=== PATIENT | male | born 1930 | race Caucasian/White ===

== ENCOUNTER 2016-10-16 16:30 | Emergency (ER) | payer MEDICARE, OTHER ==
[~2016-10-16] VITALS: Ht 180.3 cm; Wt 81.4 kg
[~2016-10-16 16:30] MED LIST: ALBU2.5V4 INHALATION; ALBU8.5H2 INHALATION; ARFO15VI2 IH; ASPI-628 PO; BUDE0.5A HHN; CALC-190 PO; CHOL100045 PO; CYAN500 PO; FURO-129 PO; GABA600T PO; LEVO137T2 PO; LISI-571 PO; METF500T4 PO; PANT20TA2 PO; POLY17PO6 PO; PRAV20TA2 PO; PRD1T PO; SENN8.6C6 PO; VICODIN 5/500 PO; Vicodin 5/500 PO
[2016-10-16 16:44] VITALS: BP 142/76; PULSE 88; RESP 22; O2SAT 98
--- NOTE | 2016-10-16 16:57 | ED.REPORT ---
HPI-Trauma Minor / Fall Date of Service Oct 16, 2016 ED Provider: Dr. Eagle Pt is an 86 y/o male w/ a hx of TAA, CAD, HTN, COPD, hyperlipidemia, presenting to the ED c/o LUQ abdominal pain secondary to ground level fall which occurred prior to arrival. The patient was about to walk up some stairs while carrying a microwave and didn't clear the step with his foot causing the edge of the microwave to holland into his upper abdomen and ribs. His chief complaint at this time is LUQ abdominal pain. He believes he lost consciousness for about 2 seconds. He denies significant head injury. Pt denies vomiting, SOB. Nursing Notes Stated Complaint: CHEST PAIN Chief Complaint: Multiple Trauma/Fall Nursing Notes Reviewed: Yes Allergies: Coded Allergies: diatrizoate sodium (Verified Allergy, Severe, 01/20/16) iodine (Verified Allergy, Severe, ANAPHYLAXIS, 01/20/16) peach (Verified Allergy, Severe, throat closes, 01/20/16) Iothalamic Acid (Verified Allergy, Unknown, UNKNOWN, 08/23/14) calcitonin (Verified Allergy, Unknown, UNKNOWN, 08/23/14) strawberry (Verified Allergy, Unknown, UNKNOWN, 01/20/16) Bisphosphonates (Verified Adverse Reaction, Severe, GI upset, 08/23/14) Uncoded Allergies: EXPECTORANTS (Allergy, Unknown, UNKNOWN, 08/23/14) OATMEAL (Allergy, Unknown, UNKNOWN, 08/23/14) Scheduled Arformoterol Tartrate (Brovana) 15 Mcg/2 Ml Vial.neb 15 MCG IH BID Aspirin (Aspir 81) 81 Mg Tablet. 81 MG PO HS Budesonide (Pulmicort) 0.5 Mg/2 Ml Ampul.neb. 0.5 MG HHN BID Calcium Carb&Cit/Mag12/Vit D3 (Calcium 500 mg Tablet) 1 Each Tablet 1 EACH PO BID Cholecalciferol (Vitamin D3) (Vitamin D) 1,000 Unit Capsule 1,000 UNIT PO DAILY Cyanocobalamin (Vitamin B12) 500 Mcg Tablet 1,000 MCG PO DAILY Furosemide (Lasix) 20 Mg Tablet 20 MG PO DAILY Gabapentin (Neurontin) 600 Mg Tablet 600 MG PO TID Levothyroxine (Levothyroxine) 137 Mcg Tablet 137 MCG PO DAILY Lisinopril (Lisinopril) 5 Mg Tablet 5 MG PO DAILY Metformin (Metformin) 500 Mg Tablet 500 MG PO MORNING Metformin (Metformin) 500 Mg Tablet 250 MG PO Evening Pantoprazole DR (Pantoprazole DR) 20 Mg Tablet.dr 20 MG PO BIDAC Polyethylene Glycol 3350 (Miralax) 17 Gm Powd.pack 17 GM PO DAILY Pravastatin (Pravastatin) 20 Mg Tablet 20 MG PO HS PredniSONE (PredniSONE) 1 Mg Tab 6-7 MG PO DAILY ALTERNATE 6MG & 7MG DAILY Scheduled PRN ([Vicodin 5/500]) 1 TAB PO 0600, 1400 PRN PRN For Pain ([Vicodin 5/500]) 0.5 TAB PO HS PRN PRN For Pain Albuterol HFA (Proair HFA) 8.5 Gm Hfa.aer.ad 2 PUFFS INHALATION Q4-6H PRN PRN For Shortness of Breath Albuterol Neb Soln (Albuterol Neb Soln) 2.5 Mg/3 Ml Vial.neb 2.5 MG INHALATION Q4-6H PRN PRN For Shortness of Breath Up to 4 times daily Sennosides (Senna) 8.6 Mg Capsule 2 CAP PO DAILY PRN PRN PRN oxyCODONE-Acetaminophen 10-325 mg (oxyCODONE-Acetaminophen 10-325 mg) 1 Each Tablet 1 TABLET PO Q4H PRN PRN For Pain oxyCODONE-Acetaminophen 10-325 mg (oxyCODONE-Acetaminophen 10-325 mg) 1 Each Tablet 1 TABLET PO Q4H PRN PRN For Pain General Time Seen by MD: 16:56 Chief Complaint Fall Hx Obtained From: Patient Arrived By: Walk-in Onset Occurred: Just prior to arrival Symptom Duration: Since onset Caused by: Blunt trauma Location: Abdomen Chest Quality: Painful Severity: Current: Moderate Severity: Maximum: Moderate Similar Sx Previous: No Past Medical History Past Medical History Notes: Nuclear med perfusion study in 2014: No obvious reversible ichemia, but some visible perfusion abnormalities. Past Medical History thoracic aortic aneurysm - 4.5cm SVT Venous insufficiency history of DVT Valvular heart disease rectal bleeding with internal hemorrhoids Hiatal hernia arthritis Reports: Asthma, COPD, Coronary artery disease, GERD, Hyperlipidemia, Hypertension Reports: Depression Past Surgical History Cataracts (S/P EXTRACTIONS) cardiac cath 2x Reports: Appendectomy, Cholecystectomy Reports: Back/neck surgery Family History noncontributory Smoking History Never Smoker Social History Other Social History: Good social support, , Local resident Ambulatory Status Independent Review of Systems Constitutional: Denies: Chills, Fever Respiratory: Denies: Non-productive cough, Shortness of breath Musculoskeletal: Denies: Back pain, Neck pain Neurologic: Denies: Focal weakness, Headache, Numbness Complete sys rev & neg: except as marked. Cardiovascular: Reports: Chest pain, Denies: Dyspnea on exertion GI: Reports: Abdominal pain, Denies: Nausea, Vomiting Physical Exam Initial Vital Signs Vital Signs (First) Date Time Temp Pulse Resp B/P Pulse Ox O2 Delivery O2 Flow Rate FiO2 10/16/16 16:44 36.6 88 22 142/76 98 Room Air Initial VS: Reviewed, Vital signs normal Head / Eyes: Atraumatic, Normocephalic, PERRL ENT: Mucous membranes moist, Conjunctiva normal, No scleral icterus Cardiovascular: Regular rate & rhythm, Heart sounds normal, Intact distal pulses Extremities: Vascular intact, Neuro intact, No swelling, No tenderness Skin: Warm, Dry, No cyanosis Neurologic: Alert, Oriented, Nonfocal Psychiatric: Mood/affect normal, Behavior normal, Normal thought content General/Constitutional: Awake, Alert, Cooperative, Not toxic appearing Distress / Hydration: Positive: Distress mild Appearance / Presentation: Positive: In pain, Uncomfortable Neck: Atraumatic, Supple, No meningismus, Full range of motion, No swelling, Non-tender, No midline vertebral tend Respiratory / Chest: Atraumatic, Breath sounds NL, Breath sounds = bilat, No respiratory distress, No rales, No rhonchi, No wheezing, No retractions, No stridor, No chest wall deformity, No crepitus Point tenderness about about anterior ribs 5, 6, and 7 on the left. No bony step-offs. Abdomen: Soft, No guarding, No rebound, No distention, No palpable mass Tenderness/Guarding/Rebound: Positive: Tender LUQ... (Moderate) Back: Full range of motion, Painless range of motion Interpretation & Diagnostics Lab Results Interpretation Result Diagram: 10/16/168 10/16/168 Test 10/16/16 17:58 White Blood Count 10.4th/mm3 (3.8-10.1) Red Blood Count 3.44mil/mm3 (4.40-5.80) Hemoglobin 11.6g/dL (13.8-17.2) Hematocrit 32.3% (41.0-50.0) Mean Corpuscular Volume 93.9fL (81-100) Mean Corpuscular Hemoglobin 33.7pg (27.0-35.0) Mean Corpuscular Hemoglobin Concent 35.9% (32.0-37.0) Red Cell Distribution Width 15.8% (12.3-15.4) Platelet Count 249bil/L (150-400) Neutrophils (%) (Auto) 56.9% (40-74) Lymphocytes (%) (Auto) 35.5% (14-46) Monocytes (%) (Auto) 6.0% (4-12) Eosinophils (%) (Auto) 1.1% (0-5) Basophils (%) (Auto) 0.2% (0-3) Prothrombin Time 10.5sec (8.1-12.5) Prothromb Time International Ratio 0.98ratio Sodium Level 131mEq/L (134-144) Potassium Level 4.7mEq/L (3.5-5.2) Chloride Level 93mEq/L (97-108) Carbon Dioxide Level 22mmol/L (18-29) Blood Urea Nitrogen 14mg/dL (8-27) Creatinine 0.87mg/dL (0.76-1.27) Estimat Glomerular Filtration Rate 88mL/min (>59) Glucose Level 126mg/dL (60-99) Lactic Acid Level 1.8mmol/L (0.4-2.0) Calcium Level 9.5mg/dL (8.5-10.1) Magnesium Level 2.3mg/dL (1.6-2.6) Total Bilirubin 1.0mg/dL (0.0-1.2) Aspartate Amino Transf (AST/SGOT) 17U/L (0-50) Alanine Aminotransferase (ALT/SGPT) 13U/L (0-44) Alkaline Phosphatase 47U/L (25-160) Total Protein 6.8g/dL (6.4-8.4) Albumin 4.1g/dL (3.4-5.0) Lipase 25U/L (13-60) ECG Interpretation ECG Interpretation: Sinus rhythm rate 81 Borderline prolonged TX interval RBBB Time: 17:39 Interpreted by: ED physician Normal ECG Interpretation: No acute ischemic changes, No change from prior ECGs (01/20/16) X-Ray Chest Interpretation Chest Xray Interpretation: IMPRESSION: No acute disease is seen in the two-view chest. Dictated by: Bernard Riggs M.D. on 10/16/2016 at 17:34 Approved by: Bernard Riggs M.D. on 10/16/2016 at 17:36 View: Portable, AP & lat Interpretation / Wet Read by: Interpret - Radiologist CT Head Interpretation IMPRESSION: No acute intracranial abnormality/traumatic abnormalities seen. Atrophic changes present. Dictated by: Bernard Riggs M.D. on 10/16/2016 at 17:24 Approved by: Bernard Riggs M.D. on 10/16/2016 at 17:27 Study: Head CT no contrast Interpretation / Wet Read by: Interpret - Radiologist CT Abd / Pelvis Interpretation IMPRESSION: 1. No traumatic abnormality is seen in this patient status post fall. 2. Unchanged nonobstructing kidney stones one on each side less than 5 mm. 3. Degenerative changes in the visualized skeleton but no fracture. Previous lower lumbar laminectomies. Dictated by: Bernard Riggs M.D. on 10/16/2016 at 17:27 Approved by: Bernard Riggs M.D. on 10/16/2016 at 17:32 Study type: Abdominal CT no contrast Interpretation / Wet Read by: Interpret - Radiologist Re-Eval/Medical Decision Med Decision/Clinical Course 86-year-old male with multiple medical problems presents after a fall after he missed a step at home and landed on his microwave which he was carrying at the time. He is in the process of moving. He admits to a syncopal episode that occurred with the fall but did not precipitate the fall. He complains of hitting his head with the fall. Head CT was unremarkable. Abdominal/pelvic CT showed no intra-abdominal bleeding or injury. On his exam he is focally tender and ribs 5,6 and 7 anteriorly near the nipple line. I spoke with Dr. Riggs in radiology who notes that the patient has possible rib fractures noted on series 7, views 3 and 11. I discussed with the patient that there is significant concern for post injury complications such as pneumonia, pulmonary embolus, and intractable pain in patients his age after rib fractures and recommended admission for pain control. Patient notes he does not want to be admitted and will try and control home. He has received 2 doses of Dilaudid 0.5 mg IV without relief of his pain. He was then given Toradol 15 mg and Dilaudid 0.5 mg again and found some improvement of his pain. I have discharged him home with a prepack of Percocet as well as a prescription for 14 tablets of Percocet 10/325. He takes chronic Vicodin 10 mg every 6 hours for his rheumatoid arthritis, so he may need something stronger to help with this acute on chronic pain and I have recommended he switch to Percocet. I also recommended he take ibuprofen 400 mg every 6-8 hours as it seemed the anti-inflammatories were more helpful than the narcotics for his acute rib pain. I recommended he only be on this as long as needed due to the increased risk for patients his age Lab work returned normal. His EKG was unremarkable. Chest x-ray was normal. Patient understands that he should return to the ER if he has intractable pain, develops shortness of breath, or fever or chills. I discussed his care with his PCP, Dr. Mejia who plans to follow-up with him next week Source of Hx: Old records Re-Evaluation/Progress : Time of Eval: 20:06 Re-Evaluation/Progress Note: Pain still not improved. We will try Toradol 10 mg and Dilaudid 0.5 mg again Consultation #1: Referral / Consult Name: Bernard Riggs MD Call Returned at: 18:25 Molded Candles Wicker: Agrees with eval, Agrees with plan Note: Reports the patient does in fact have rib fractures that were not reported on the initial CT. Consultation #2: Referral / Consult Name: Debra Mejia MD Consulted With: Primary care physician Molded Candles Wicker: Will see in office, Agrees with eval, Agrees with plan Counseled Regarding: Diagnosis, Lab results, Need for follow-up, When/why to return to ED Discharge & Departure Impression: Primary Impression: Rib fractures Encounter type: initial encounter Rib fracture type: multiple ribs Fracture type: closed Laterality: left Qualified Code: S22.42XA - Multiple fractures of ribs, left side, initial encounter for closed fracture Additional Impressions: Fall from ground level Blunt trauma to abdomen Encounter type: initial encounter Qualified Code: S39.81XA - Other specified injuries of abdomen, initial encounter Syncope Syncope type: unspecified Qualified Code: R55 - Syncope and collapse Disposition: Home Discharge Condition All VS Reviewed: Yes Condition: Stable Patient Instructions: Rib Fracture (ED) Additional Instructions: You have have fractured several ribs on the left side from your fall today. I think that you will will need Percocet which is known to be a little stronger than Vicodin to help with your pain. These follow-up with your PCP next week for a reevaluation. Return to the ER if you develop worsening or intractable pain, shortness of breath, or cough/fevers. I am sorry this happened and I wish you the best with the move. Referrals: Debra Mejia MD (PCP) Scribe Attestation Portions of this note were transcribed by Arron Carlson. I, Dr. Eagle personally performed the history, physical exam and medical decision-making; I reviewed and confirmed the accuracy of the information in the transcribed note. Signed by Conchis Heredia, 10/16/16 - [id number] copies to: Debra Mejia MD, Gary R DO Oct 16, 2016 16:57 ARRON CARLSON Oct 16, 2016 17:00
--- NOTE | 2016-10-16 17:28 | DRSVH ---
PROCEDURE: CT BRAIN WITHOUT CONTRAST ([id number]) INDICATIONS: abdominal pain, s/p fall TECHNIQUE: Noncontrast 4.5 mm thick angled axial sections acquired from the foramen magnum to the vertex, with c oronal reformats. COMPARISON: None. FINDINGS: Image quality: Excellent. CSF spaces: Basal cisterns are patent. No extra-axial fluid collections. The ventricles are symmet fox in size and shape. Brain: No intracranial bleeds or masses. There is cerebral volume loss for age, with resultant vent ricular and sulcal prominence. There are periventricular and deep white matter chronic small vessel ischemic changes. There is intracranial internal carotid artery atherosclerosis. Skull and face: Calvarium and visualized facial bones appear intact, without suspicious lesions. Sinuses: Visualized sinuses and mastoids are clear. IMPRESSION: No acute intracranial abnormality/traumatic abnormalities seen. Atrophic changes present. Dictated by: Bernard Riggs M.D. on 10/16/2016 at 17:24 Approved by: Bernard Riggs M.D. on 10/16/2016 at 17:27
--- NOTE | 2016-10-16 17:34 | DRSVH ---
PROCEDURE: CT ABDOMEN AND PELVIS WITHOUT CONTRAST ([id number]) INDICATIONS: abdominal pain, s/p fall TECHNIQUE: Noncontrast 5 mm thick sections acquired from the diaphragms to the symphysis. 5 mm coronal and sagi ttal reformats were then performed. For radiation dose reduction, the following was used: automated exposure control, adjustment of mA and/or kV according to patient size. COMPARISON: [facility], CT, CT ABD PELVIS WO CON, 01/20/2016, 12:04. FINDINGS: Image quality: Excellent. ABDOMEN: Lung bases: Lung bases are clear. Heart size is normal. Solid organs: Liver and spleen are normal in size. Gallbladder has been removed. Pancreas is aleksandra l in contours. No adrenal nodules. Kidneys are normal in size, without hydronephrosis. There is a s catherine nonobstructing renal calculus in each kidney. They're unchanged in size and less than 5 mm. Peritoneum and bowel: Unenhanced bowel loops demonstrate normal wall thickness and caliber. No free fluid or air. Nodes and vessels: No retroperitoneal or mesenteric adenopathy by size criteria. Aorta and inferior vena cava are normal in caliber. Miscellaneous: No ventral hernias. PELVIS: Genitourinary: Bladder wall thickness is normal. Miscellaneous: No inguinal hernias or adenopathy. Bones: No suspicious bony lesions. Previous lumbar spine posterior element surgery is noted as logan ectomies. No vertebral body compression fractures. IMPRESSION: 1. No traumatic abnormality is seen in this patient status post fall. 2. Unchanged nonobstructing kidney stones one on each side less than 5 mm. 3. Degenerative changes in the visualized skeleton but no fracture. Previous lower lumbar laminectomi es. Dictated by: Bernard Riggs M.D. on 10/16/2016 at 17:27 Approved by: Bernard Riggs M.D. on 10/16/2016 at 17:32
--- NOTE | 2016-10-16 17:38 | DRSVH ---
PROCEDURE: X-RAY CHEST, TWO VIEWS ([id number]) INDICATIONS: shorntess of breath, wheezing, fall TECHNIQUE: 2 views of the chest were acquired. COMPARISON: [facility], CR, CHEST 2VW, 08/21/2014, 14:00. [facility], CR, X R CHEST 1VW (PORTABLE), 01/20/2016, 9:38. FINDINGS: Surgical changes and devices: Vascular clips in the gallbladder bed are present. Plates and screws ar e seen in the lower cervical to cervical thoracic spine from previous surgery. Lungs and pleura: No pleural effusions or pneumothorax. Lungs are clear. Mediastinum: Mediastinal contours are normal. Heart size is normal. Bones and chest wall: No suspicious bony abnormalities. Soft tissues appear unremarkable. IMPRESSION: No acute disease is seen in the two-view chest. Dictated by: Bernard Riggs M.D. on 10/16/2016 at 17:34 Approved by: Bernard Riggs M.D. on 10/16/2016 at 17:36
[2016-10-16] MEDS ORDERED: Ondansetron 2 mg/mL 2 mL Inj IVPUSH PRN (17:40)
[2016-10-16] MEDS: HYDROmorphone 0.5 mg/0.5 mL iSecure Syringe IVPUSH PRN ×4 (17:59→19:55)
[2016-10-16 18:15] LABS: BASOPHILS % (AUTO) 0.2 % (0-3); EOSINOPHILS % (AUTO) 1.1 % (0-5); Mean Corpuscular Hemoglobin 33.7 pg (27.0-35.0); Mean Corpuscular Volume 93.9 fL (81-100); NEUTROPHILS % (AUTO) 56.9 % (40-74); Platelet Count 249 bil/L (150-400)
[2016-10-16 18:39] LABS: INR 0.98 ratio
[2016-10-16 18:47] LABS: Magnesium 2.3 mg/dL (1.6-2.6)
[2016-10-16] MEDS ORDERED: Ketorolac 15 mg/mL Inj IVPUSH ONE (19:25)
[2016-10-16] MEDS ORDERED: HYDROmorphone 1 mg/mL Inj IVPUSH ONE (19:50)
[2016-10-16 19:57] VITALS: BP 131/49; PULSE 72; O2SAT 97
[2016-10-16] MEDS ORDERED: OXYC-466 PO ×2 (19:58→20:23)
[2016-10-16] MEDS ORDERED: _oxyCODONE/APAP 5-325 mg Tablet PO PRN (20:00)
[2016-10-16 20:54] VITALS: BP 131/49; PULSE 72; RESP 22; O2SAT 97
== END 2016-10-16 21:00 | disposition home or self-care (01) ==
LOC: SED 16:30
DX: S22.42XA Multiple fractures of ribs, left side, initial encounter for closed fracture (principal); S39.81XA Other specified injuries of abdomen, initial encounter; W18.09XA Striking against other object with subsequent fall, initial encounter; Y93.89 Activity, other specified; Y92.098 Other place in other non-institutional residence as the place of occurrence of the external cause; Y99.8 Other external cause status; R55 Syncope and collapse; I11.9 Hypertensive heart disease without heart failure; I25.10 Atherosclerotic heart disease of native coronary artery without angina pectoris; J45.909 Unspecified asthma, uncomplicated; K21.9 Gastro-esophageal reflux disease without esophagitis; E78.5 Hyperlipidemia, unspecified; Z79.82 Long term (current) use of aspirin; Z79.84 Long term (current) use of oral hypoglycemic drugs; Z88.8 Allergy status to other drugs, medicaments and biological substances; Z91.02 Food additives allergy status; Z91.041 Radiographic dye allergy status
CPT/HCPCS: 70450; 71020; 74176; 80053; 83605; 83690; 83735; 85025; 85610; 93005; 94664; 96374; 96375; 96376; 99285; J1170; J1885; J2405